=== PATIENT | female | born 1985 | race Hispanic/Latino ===

== ENCOUNTER 2016-10-12 21:42 | Emergency (ER) | payer SELFPAY ==
--- NOTE | 2016-10-12 22:23 | RAD ---
THREE VIEW RIGHT ANKLE 10/12/16 CLINICAL HISTORY: Pain, fall. FINDINGS: No fracture or dislocation. Mortise is intact. There is a punctate density seen within the plantar a spect of the hindfoot on the lateral view, not seen on the additional views. This could relate to ar tifact or possibly a small foreign body of the hindfoot soft tissues. IMPRESSION: No acute osseous abnormality. Punctate density of the hindfoot soft tissues as above. POS: MINE
[2016-10-12 22:33] LABS: Pregnancy Test - Urine (BHCG) Negative (Negative)
[2016-10-12 22:34] LABS: Pregu Control Background? CLEAR/WHITE (CLR/WHITE); Pregu Control Bar Appear? YES (CONTROL BAR); Specific Gravity 1.026 (1.002-1.036)
[2016-10-12] MEDS ORDERED: traMADol HCl 50 MG TAB ONE (22:39)
== END 2016-10-12 22:48 | disposition home or self-care (01) ==
LOC: BURERS 21:42
DX: S93.401A Sprain of unspecified ligament of right ankle, initial encounter (principal); F17.210 Nicotine dependence, cigarettes, uncomplicated; W01.0XXA Fall on same level from slipping, tripping and stumbling without subsequent striking against object, initial encounter; Y93.01 Activity, walking, marching and hiking; Y99.8 Other external cause status
CPT/HCPCS: 81025

== ENCOUNTER 2016-12-08 16:18 | Emergency (ER) | payer SELFPAY ==
[2016-12-08] MEDS ORDERED: Ketorolac Tromethamine 30 MG/ML VIAL ONE (16:51)
== END 2016-12-08 17:25 | disposition home or self-care (01) ==
LOC: BURERS 16:18
DX: S03.2XXA Dislocation of tooth, initial encounter (principal); F17.210 Nicotine dependence, cigarettes, uncomplicated; W11.XXXA Fall on and from ladder, initial encounter
CPT/HCPCS: 96372; J1885

== ENCOUNTER 2017-04-07 05:00 | Emergency (ER) | payer SELFPAY ==
[2017-04-07 05:27] LABS: Bilirubin Negative (Negative); Blood, Urine Negative (Negative); Clarity Clear (Clear); Glucose, Urine (Dipstick) Negative (Negative); Leukocyte Negative (Negative); Nitrite Negative (Negative); Protein, Urine (Dipstick) Negative (Neg-Trace); Specific Gravity, Urine 1.025 (1.005-1.030)
== END 2017-04-07 06:11 | disposition home or self-care (01) ==
LOC: BURERS 05:00
DX: R10.9 Unspecified abdominal pain (principal); F17.210 Nicotine dependence, cigarettes, uncomplicated
CPT/HCPCS: 81003; 99284

== ENCOUNTER 2017-09-27 07:28 | Emergency (ER) | payer SELFPAY ==
[2017-09-27 08:21] LABS: Bilirubin Negative (Negative); Clarity Cloudy (Clear); Glucose, Urine (Dipstick) Negative (Negative); Leukocyte Trace (Negative); Nitrite Positive (Negative); Protein, Urine (Dipstick) 30 mg/dL (Neg-Trace); Specific Gravity, Urine 1.025 (1.005-1.030); Urobilinogen 0.2 mg/dL (0.2-1.0)
[2017-09-27 08:22] LABS: Blood, Urine Trace (Negative)
[2017-09-27] MEDS ORDERED: Cephalexin 500 MG CAP ONE (08:29)
[2017-09-27] MEDS ORDERED: Azithromycin 250 MG TAB ONE (08:29)
[2017-09-27 08:31] LABS: Bacteria/HPF 4+ HPF (None Seen); RBC/HPF 0-3 HPF (0-3); Squamous Epithelial 0-3 HPF (0-3)
[2017-09-27 08:36] LABS: Pregnancy Test - Urine (BHCG) Negative (Negative); Pregu Control Background? CLEAR/WHITE (CLR/WHITE); Pregu Control Bar Appear? YES (CONTROL BAR); Specific Gravity 1.025 (1.002-1.036)
== END 2017-09-27 08:40 | disposition home or self-care (01) ==
LOC: BURERS 07:28
DX: N39.0 Urinary tract infection, site not specified (principal); F17.210 Nicotine dependence, cigarettes, uncomplicated
CPT/HCPCS: 81003; 81015; 81025; 87491; 87591; 99283

== ENCOUNTER 2017-10-10 19:18 | Emergency (ER) | payer SELFPAY ==
[2017-10-10] MEDS ORDERED: Dicyclomine 20 MG TAB ONE (19:34)
[2017-10-10 19:40] LABS: Pregnancy Test - Urine (BHCG) Negative (Negative); Pregu Control Background? CLEAR/WHITE (CLR/WHITE); Pregu Control Bar Appear? YES (CONTROL BAR)
[2017-10-10 19:41] LABS: Bilirubin Negative (Negative); Blood, Urine Moderate (Negative); Clarity Clear (Clear); Glucose, Urine (Dipstick) Negative (Negative); Leukocyte Small (Negative); Nitrite Negative (Negative); Protein, Urine (Dipstick) 30 mg/dL (Neg-Trace); RBC/HPF 0-3 HPF (0-3); Squamous Epithelial 0-3 HPF (0-3); Urobilinogen 0.2 mg/dL (0.2-1.0); pH, Urine 5.5 (5.0-9.0)
[2017-10-10 19:42] LABS: Bacteria/HPF Rare-Few HPF (None Seen); Trichomonas/HPF 1+ HPF (None Seen)
[2017-10-10] MEDS ORDERED: Cephalexin 500 MG CAP ONE (19:52)
[2017-10-10] MEDS ORDERED: metroNIDAZOLE 250 MG TAB ONE (19:52)
== END 2017-10-10 19:53 | disposition home or self-care (01) ==
LOC: BURERS 19:18
DX: N39.0 Urinary tract infection, site not specified (principal); F17.210 Nicotine dependence, cigarettes, uncomplicated
CPT/HCPCS: 81003; 81015; 81025; 99284

== ENCOUNTER 2020-05-11 16:03 | Emergency (ER) | payer SELFPAY | END 2020-05-11 16:42 | disposition home or self-care (01) | LOC: BURERS 16:03 | DX: N89.8 Other specified noninflammatory disorders of vagina (principal); F17.210 Nicotine dependence, cigarettes, uncomplicated | CPT/HCPCS: 99281 ==

== ENCOUNTER 2021-02-20 16:13 | Emergency (ER) | payer SELFPAY ==
[2021-02-20 16:42] LABS: Bilirubin Negative (Negative); Blood, Urine Negative (Negative); Clarity Clear (Clear); Glucose, Urine (Dipstick) Negative (Negative); Ketone, Urine Negative (Negative); Leukocyte Negative (Negative); Nitrite Negative (Negative); Protein, Urine (Dipstick) Negative (Neg-Trace); Urobilinogen 0.2 mg/dL (Less than 2); pH, Urine 8.5 (5.0-9.0)
[2021-02-20 16:43] LABS: Pregnancy Test - Urine (BHCG) Negative (Negative); Pregu Control Background? CLEAR/WHITE (CLR/WHITE); Pregu Control Bar Appear? YES (CONTROL BAR)
[2021-02-20] MEDS ORDERED: Ketorolac Tromethamine 30 MG/ML VIAL ONE (16:53)
[2021-02-20] MEDS ORDERED: Cyclobenzaprine 10 MG TAB ONE (16:53)
[2021-02-20 16:59] LABS: #Basophils 0.1 thou/uL (0.0-0.2); #Lymphocytes 1.3 thou/uL (1.20-3.40); #Monocytes 0.7 thou/uL (0.11-0.59); %Basophils 0.6 % (0.0-1.0); %Eosinophils 0.4 % (0.0-10.0); %Lymphocytes 11.1 % (21.0-51.0); %Monocytes 5.9 % (0.0-10.0); %Neutrophils 82.1 % (42.0-75.0); Hemoglobin 10.8 g/dL (12.0-16.0); Mean Corpuscular HGB CONC 31.3 g/dL (32.0-36.0); Mean Corpuscular Hemoglobin 25.2 pg (27.0-31.0); Mean Corpuscular Volume 80.6 fL (78.0-98.0); Mean Platelet Volume 7.4 fL (7.4-10.4); Platelet Count 272 thou/uL (130-400); RBC Distribution Width 15.1 % (11.5-14.5); Red Blood Cell (RBC) Count 4.29 mill/uL (4.20-5.40); White Blood Cell (WBC) Count 12.1 thou/uL (4.8-10.8)
[2021-02-20 17:15] LABS: ALT (SGPT) 27 U/L (8-55); AST (SGOT) 20 U/L (5-34); Albumin 3.9 g/dL (3.5-5.0); Alkaline Phosphatase 64 U/L (40-110); Anion Gap 16 mmol/L (10-20); BUN (Urea Nitrogen) 12 mg/dL (7.0-18.7); Bilirubin, Total 0.5 mg/dL (0.2-1.2); Calc. Creatinine Clearance 0 mL/min (70-130); Calcium 9.5 mg/dL (7.8-10.44); Carbon Dioxide 23 mmol/L (22-29); Chloride 102 mmol/L (98-107); Globulin 3.4 g/dL (2.4-3.5); Glucose 100 mg/dL (70-105); Potassium 3.6 mmol/L (3.5-5.1); Protein, Total 7.3 g/dL (6.0-8.3); Sodium 137 mmol/L (136-145)
== END 2021-02-20 17:51 | disposition home or self-care (01) ==
LOC: BURERS 16:13
DX: M54.50 Low back pain, unspecified (principal); F17.210 Nicotine dependence, cigarettes, uncomplicated
CPT/HCPCS: 36415; 80053; 81003; 81025; 85025; 87077; 87086; 87186; 96374; J1885

== ENCOUNTER 2021-02-20 23:43 | Emergency (ER) | payer SELFPAY ==
[~2021-02-20 23:43] MED LIST: Iopamidol 370 76% 100 ML VIAL ONE
[2021-02-21 00:28] LABS: #Basophils 0.1 thou/uL (0.0-0.2); #Eosinphils 0.1 thou/uL (0.0-0.7); #Lymphocytes 1.3 thou/uL (1.20-3.40); #Monocytes 0.9 thou/uL (0.11-0.59); #Neutrophils 7.4 thou/uL (1.40-6.50); %Eosinophils 0.7 % (0.0-10.0); %Lymphocytes 13.6 % (21.0-51.0); %Monocytes 9.4 % (0.0-10.0); %Neutrophils 75.4 % (42.0-75.0); Hemoglobin 10.3 g/dL (12.0-16.0); Mean Corpuscular Hemoglobin 26.2 pg (27.0-31.0); Mean Corpuscular Volume 79.4 fL (78.0-98.0); Mean Platelet Volume 6.9 fL (7.4-10.4); Platelet Count 251 thou/uL (130-400); RBC Distribution Width 15.6 % (11.5-14.5); Red Blood Cell (RBC) Count 3.91 mill/uL (4.20-5.40); White Blood Cell (WBC) Count 9.8 thou/uL (4.8-10.8)
[2021-02-21] MEDS ORDERED: Morphine 4 MG/ML VIAL ONE (00:31)
[2021-02-21] MEDS ORDERED: Lorazepam 2 MG/ML VIAL ONE (00:31)
[2021-02-21 00:37] LABS: Pregs Control Background? CLEAR/WHITE (CLR/WHITE); Pregs Control Bar Appear? YES (CONTROL BAR)
[2021-02-21 00:42] LABS: BHCG - Serum Negative (NEGATIVE)
[2021-02-21 00:46] LABS: ALT (SGPT) 27 U/L (8-55); AST (SGOT) 23 U/L (5-34); Albumin 3.5 g/dL (3.5-5.0); Alkaline Phosphatase 62 U/L (40-110); Anion Gap 14 mmol/L (10-20); BUN (Urea Nitrogen) 13 mg/dL (7.0-18.7); Bilirubin, Total 0.4 mg/dL (0.2-1.2); Calc. Creatinine Clearance 0 mL/min (70-130); Calcium 8.8 mg/dL (7.8-10.44); Carbon Dioxide 23 mmol/L (22-29); Chloride 104 mmol/L (98-107); Globulin 3.1 g/dL (2.4-3.5); Glucose 114 mg/dL (70-105); Potassium 3.8 mmol/L (3.5-5.1); Protein, Total 6.6 g/dL (6.0-8.3); Sodium 137 mmol/L (136-145)
[2021-02-21 00:47] LABS: Acetaminophen Less than 6.0 mcg/mL (10.0-30.0); Alcohol Less than 10 mg/dL (Less than 10); CK (CPK) 130 U/L (29-168); Salicylate Less than 8.0 mg/dL (15.0-30.0)
== END 2021-02-21 02:23 | disposition home or self-care (01) ==
LOC: BURERS 23:43
DX: M51.37 Other intervertebral disc degeneration, lumbosacral region (principal); F15.10 Other stimulant abuse, uncomplicated; F17.210 Nicotine dependence, cigarettes, uncomplicated
CPT/HCPCS: 71260; 74177; 80307; 82550; 83605; 83735; 84703; 86140; 96374; 96375; J2060; J2270; Q9967

== ENCOUNTER 2021-02-25 16:49 | Observation (INO) | payer SELFPAY ==
[2021-02-25] MEDS ORDERED: cefTRIAXone\\ROCEPHIN 2 GM VIAL ONE (17:44)
[2021-02-25] MEDS ORDERED: Ondansetron PF 4 MG/2 ML Vial ONE (17:44)
[2021-02-25] MEDS ORDERED: Ketorolac Tromethamine 30 MG/ML VIAL ONE ×2 (17:44→21:18)
[2021-02-25 17:52] LABS: ALT (SGPT) 145 U/L (8-55); AST (SGOT) 39 U/L (5-34); Albumin 3.6 g/dL (3.5-5.0); Alkaline Phosphatase 205 U/L (40-110); Anion Gap 16 mmol/L (10-20); BUN (Urea Nitrogen) 11 mg/dL (7.0-18.7); Bilirubin, Total 0.3 mg/dL (0.2-1.2); Calc. Creatinine Clearance 0 mL/min (70-130); Calcium 9.7 mg/dL (7.8-10.44); Carbon Dioxide 26 mmol/L (22-29); Chloride 99 mmol/L (98-107); Glucose 105 mg/dL (70-105); Protein, Total 7.6 g/dL (6.0-8.3); Sodium 137 mmol/L (136-145)
[2021-02-25 17:55] LABS: #Basophils 0.1 thou/uL (0.0-0.2); #Lymphocytes 1.4 thou/uL (1.20-3.40); #Monocytes 0.6 thou/uL (0.11-0.59); #Neutrophils 10.5 thou/uL (1.40-6.50); %Basophils 0.8 % (0.0-1.0); %Eosinophils 0.3 % (0.0-10.0); %Monocytes 4.6 % (0.0-10.0); %Neutrophils 83.4 % (42.0-75.0); Hemoglobin 11.9 g/dL (12.0-16.0); Mean Corpuscular HGB CONC 33.1 g/dL (32.0-36.0); Mean Corpuscular Hemoglobin 25.9 pg (27.0-31.0); Mean Corpuscular Volume 78.1 fL (78.0-98.0); Mean Platelet Volume 5.6 fL (7.4-10.4); Platelet Count 419 thou/uL (130-400); RBC Distribution Width 14.9 % (11.5-14.5); Red Blood Cell (RBC) Count 4.61 mill/uL (4.20-5.40); White Blood Cell (WBC) Count 12.6 thou/uL (4.8-10.8)
[2021-02-25 18:19] LABS: Bilirubin Negative (Negative); Blood, Urine Trace (Negative); Clarity Clear (Clear); Glucose, Urine (Dipstick) Negative (Negative); Ketone, Urine Negative (Negative); Leukocyte Trace (Negative); Nitrite Negative (Negative); Protein, Urine (Dipstick) Negative (Neg-Trace); Urobilinogen 0.2 mg/dL (Less than 2); pH, Urine 6.5 (5.0-9.0)
[2021-02-25 18:59] LABS: Bacteria/HPF 1+ HPF (None Seen); RBC/HPF 0-3 HPF (0-3); Sperm/HPF Rare HPF (None Seen); Transitional Epithelial 0-3 HPF (None Seen); WBC/HPF 0-3 HPF (0-3)
[2021-02-25] MEDS ORDERED: Morphine 2 MG/ML VIAL ONE (19:03)
[2021-02-25 19:29] VITALS: BMI 29.2
[2021-02-25] MEDS ORDERED: HYDROcodone/Acetaminophen 5/325 mg Tablet PO PRN (20:00)
[2021-02-25] MEDS ORDERED: Acetaminophen 325 MG TAB PO PRN (20:00)
[2021-02-25] MEDS ORDERED: Ondansetron PF 4 MG/2 ML Vial IVP PRN (20:00)
[2021-02-25] MEDS ORDERED: Ondansetron ODT 4 MG TAB SL PRN (20:00)
[2021-02-25 21:05] LABS: SARS-CoV-2 NAA Rapid Test Not Detected (NotDetected)
[2021-02-25] MEDS: Ketorolac Tromethamine 30 MG/ML VIAL IVP PRN (21:24)
[2021-02-25] MEDS: Dextrose 5 %-0.45 % NaCl 1,000 ML IV SCH (21:27)
[2021-02-26] MEDS ORDERED: Ketorolac Tromethamine 30 MG/ML VIAL ONE ×4 (03:18→23:28)
[2021-02-26] MEDS: Ketorolac Tromethamine 30 MG/ML VIAL IVP PRN ×4 (03:22→23:33)
[2021-02-26] MEDS: Dextrose 5 %-0.45 % NaCl 1,000 ML IV SCH ×3 (03:23→19:41)
[2021-02-26] MEDS: HYDROcodone/Acetaminophen 5/325 mg Tablet PO PRN ×3 (08:59→23:37)
[2021-02-26] MEDS ORDERED: cefTRIAXone\\ROCEPHIN 1 GM in Sodium Chloride 0.9% 100 ML IVPB SCH (09:00)
[2021-02-26] MEDS ORDERED: Nicotine 21 MG PATCH TOP SCH (12:00)
[2021-02-26 12:18] LABS: #Basophils 0.1 thou/uL (0.0-0.2); #Eosinphils 0.1 thou/uL (0.0-0.7); #Lymphocytes 1.8 thou/uL (1.20-3.40); #Monocytes 0.5 thou/uL (0.11-0.59); #Neutrophils 6.4 thou/uL (1.40-6.50); %Basophils 0.8 % (0.0-1.0); %Eosinophils 1.3 % (0.0-10.0); %Lymphocytes 20.4 % (21.0-51.0); %Monocytes 5.7 % (0.0-10.0); %Neutrophils 71.7 % (42.0-75.0); Hemoglobin 10.9 g/dL (12.0-16.0); Mean Corpuscular Hemoglobin 25.7 pg (27.0-31.0); Mean Corpuscular Volume 82.9 fL (78.0-98.0); Mean Platelet Volume 5.5 fL (7.4-10.4); Platelet Count 406 thou/uL (130-400); RBC Distribution Width 15.5 % (11.5-14.5); Red Blood Cell (RBC) Count 4.22 mill/uL (4.20-5.40); White Blood Cell (WBC) Count 8.9 thou/uL (4.8-10.8)
[2021-02-26 13:47] LABS: Amphetamine Not Detected (NotDetected); Barbiturates Screen Not Detected (NotDetected); Benzodiazepine Screen Not Detected (NotDetected); Cocaine Metabolite Screen Not Detected (NotDetected); Medtox Control Line Valid? VALID (VALID); Methadone Not Detected (NotDetected); Methamphetamine Not Detected (NotDetected); Opiate Screen Not Detected (NotDetected); Oxycodone Screen Not Detected (NotDetected); Phencyclidine (PCP) Not Detected (NotDetected); THC/Cannabinoid Screen Not Detected (NotDetected); Tricyclic Screen Not Detected (NotDetected)
[2021-02-26] MEDS ORDERED: tiZANidine HCl 4 MG TAB PO PRN (18:33)
[2021-02-26] MEDS: Vancomycin HCl 1 GM in Sodium Chloride 0.9% 250 ML 250 ML IVPB SCH (18:41)
[2021-02-26] MEDS ORDERED: Bisacodyl 5 MG TAB PO PRN (18:46)
[2021-02-26] MEDS ORDERED: Sodium Chloride 0.9% 1,000 ML IV SCH (19:00)
[2021-02-26] MEDS: cefTRIAXone\\ROCEPHIN 1 GM in Sodium Chloride 0.9% 100 ML IVPB SCH (20:44)
[2021-02-27] MEDS: Vancomycin HCl 1 GM in Sodium Chloride 0.9% 250 ML 250 ML IVPB SCH (00:51)
[2021-02-27] MEDS ORDERED: Ketorolac Tromethamine 30 MG/ML VIAL ONE ×2 (05:31→07:32)
[2021-02-27] MEDS: HYDROcodone/Acetaminophen 5/325 mg Tablet PO PRN (05:33)
[2021-02-27] MEDS: Ketorolac Tromethamine 30 MG/ML VIAL IVP PRN (05:33)
[2021-02-27] MEDS ORDERED: ALPRAZolam 0.5 MG TAB PO SCH ×2 (06:00→07:30)
[2021-02-27 07:29] VITALS: BP 125/83; TEMP 98.8
[2021-02-27] MEDS ORDERED: Ketorolac Tromethamine 30 MG/ML VIAL IVP SCH (07:30)
[2021-02-27] MEDS ORDERED: HYDROcodone/Acetaminophen 5/325 mg Tablet PO SCH (07:30)
[2021-02-27] MEDS: cefTRIAXone\\ROCEPHIN 1 GM in Sodium Chloride 0.9% 100 ML IVPB SCH (07:44)
== END 2021-02-27 08:30 | disposition short-term general hospital (02) ==
LOC: BURERS 16:49 → BURMED 18:40
PROVIDERS: ADMIT Family Medicine; ATTEND Family Medicine
DX: N10 Acute pyelonephritis (principal); M43.17 Spondylolisthesis, lumbosacral region; N63.10 Unspecified lump in the right breast, unspecified quadrant; F17.210 Nicotine dependence, cigarettes, uncomplicated
CPT/HCPCS: 36415; 80053; 80306; 81003; 81015; 83605; 85025; 87040; 87086; 96365; 96375; J0696; J1885; J2270; J2405; J3370; J3490; J7042; J7050; U0002

== ENCOUNTER 2021-03-13 08:08 | Emergency (ER) | payer SELFPAY ==
[2021-03-13 08:44] LABS: Bilirubin Negative (Negative); Blood, Urine Trace (Negative); Clarity Clear (Clear); Glucose, Urine (Dipstick) Negative (Negative); Ketone, Urine Negative (Negative); Leukocyte Small (Negative); Nitrite Negative (Negative); Protein, Urine (Dipstick) Negative (Neg-Trace); Specific Gravity, Urine 1.025 (1.005-1.030); Urobilinogen 0.2 mg/dL (Less than 2); pH, Urine 6.5 (5.0-9.0)
[2021-03-13] MEDS ORDERED: Morphine 4 MG/ML VIAL ONE (08:53)
[2021-03-13] MEDS ORDERED: Morphine 2 MG/ML VIAL ONE (08:53)
[2021-03-13] MEDS ORDERED: diphenhydrAMINE 50 MG/ML VIAL ONE (08:54)
[2021-03-13 08:57] LABS: Bacteria/HPF Rare-Few HPF (None Seen); RBC/HPF 0-3 HPF (0-3); WBC/HPF None Seen HPF (0-3)
[2021-03-13 09:08] LABS: #Basophils 0.1 thou/uL (0.0-0.2); #Eosinphils 0.1 thou/uL (0.0-0.7); #Lymphocytes 1.8 thou/uL (1.20-3.40); #Monocytes 0.4 thou/uL (0.11-0.59); #Neutrophils 4.8 thou/uL (1.40-6.50); %Eosinophils 1.4 % (0.0-10.0); %Lymphocytes 25.3 % (21.0-51.0); %Monocytes 5.1 % (0.0-10.0); %Neutrophils 67.1 % (42.0-75.0); Hemoglobin 11.2 g/dL (12.0-16.0); Mean Corpuscular Hemoglobin 24.5 pg (27.0-31.0); Mean Corpuscular Volume 76.7 fL (78.0-98.0); Mean Platelet Volume 5.1 fL (7.4-10.4); Platelet Count 585 thou/uL (130-400); RBC Distribution Width 14.8 % (11.5-14.5); Red Blood Cell (RBC) Count 4.55 mill/uL (4.20-5.40); White Blood Cell (WBC) Count 7.1 thou/uL (4.8-10.8)
[2021-03-13 10:37] LABS: Anisocytosis SLIGHT = 6-15 cells (100X) (0-5/hpf); Elliptocytes SLIGHT = 2-5 cells (100X) (0-1/hpf); Hypochromia SLIGHT = 6-15 cells (100X) (0-5/hpf); MDiff Complete? YES; Platelet Morphology Comment Appears Increased
== END 2021-03-13 09:35 | disposition home or self-care (01) ==
LOC: BURERS 08:08
DX: M54.50 Low back pain, unspecified (principal); F17.210 Nicotine dependence, cigarettes, uncomplicated
CPT/HCPCS: 81003; 81015; 85025; 86140; 96374; 96375; J1200; J2270

== ENCOUNTER 2021-03-20 17:18 | Emergency (ER) | payer SELFPAY ==
[2021-03-20 18:34] LABS: #Basophils 0.1 thou/uL (0.0-0.2); #Eosinphils 0.1 thou/uL (0.0-0.7); #Lymphocytes 1.8 thou/uL (1.20-3.40); #Monocytes 0.5 thou/uL (0.11-0.59); #Neutrophils 7.5 thou/uL (1.40-6.50); %Eosinophils 1.3 % (0.0-10.0); %Lymphocytes 18.2 % (21.0-51.0); %Monocytes 5.4 % (0.0-10.0); %Neutrophils 74.1 % (42.0-75.0); Hemoglobin 12.2 g/dL (12.0-16.0); Mean Corpuscular HGB CONC 32.7 g/dL (32.0-36.0); Mean Corpuscular Hemoglobin 24.8 pg (27.0-31.0); Mean Platelet Volume 6.1 fL (7.4-10.4); Platelet Count 413 thou/uL (130-400); RBC Distribution Width 14.6 % (11.5-14.5); Red Blood Cell (RBC) Count 4.93 mill/uL (4.20-5.40); White Blood Cell (WBC) Count 10.1 thou/uL (4.8-10.8)
[2021-03-20 18:45] LABS: ALT (SGPT) 16 U/L (8-55); AST (SGOT) 18 U/L (5-34); Albumin 3.9 g/dL (3.5-5.0); Alkaline Phosphatase 115 U/L (40-110); Anion Gap 15 mmol/L (10-20); BUN (Urea Nitrogen) 17 mg/dL (7.0-18.7); Bilirubin, Total 0.3 mg/dL (0.2-1.2); Calc. Creatinine Clearance 0 mL/min (70-130); Calcium 9.8 mg/dL (7.8-10.44); Carbon Dioxide 24 mmol/L (22-29); Chloride 105 mmol/L (98-107); Glucose 105 mg/dL (70-105); Potassium 3.5 mmol/L (3.5-5.1); Protein, Total 7.9 g/dL (6.0-8.3); Sodium 140 mmol/L (136-145)
[2021-03-20 18:57] LABS: RBC Morphology Normal
[2021-03-20 18:58] LABS: Platelet Morphology Comment Appears Adequate
[2021-03-20] MEDS ORDERED: Ketorolac Tromethamine 30 MG/ML VIAL ONE (19:21)
[2021-03-20] MEDS ORDERED: Fentanyl 100 MCG/2 ML VIAL ONE (20:11)
[2021-03-20] MEDS ORDERED: Ondansetron PF 4 MG/2 ML Vial ONE (20:11)
[2021-03-20 22:41] LABS: SARS-CoV-2 NAA Rapid Test Not Detected (NotDetected)
[2021-03-20] MEDS ORDERED: Morphine 4 MG/ML VIAL ONE (23:21)
== END 2021-03-20 23:30 | disposition short-term general hospital (02) ==
LOC: BURERS 17:18
DX: M46.26 Osteomyelitis of vertebra, lumbar region (principal); M46.47 Discitis, unspecified, lumbosacral region; F15.10 Other stimulant abuse, uncomplicated; F17.210 Nicotine dependence, cigarettes, uncomplicated; Z20.822 Contact with and (suspected) exposure to COVID-19; Z79.899 Other long term (current) drug therapy
CPT/HCPCS: 0241U; 36415; 72132; 80053; 83605; 85025; 86140; 87040; 96365; 96366; 96375; J1885; J2270; J2405; J3010; J3370

== ENCOUNTER 2021-04-17 21:44 | Emergency (ER) | payer SELFPAY | END 2021-04-17 22:08 | disposition home or self-care (01) | LOC: BURERS 21:44 | DX: M79.10 Myalgia, unspecified site (principal); M79.604 Pain in right leg; M79.605 Pain in left leg; F17.210 Nicotine dependence, cigarettes, uncomplicated | CPT/HCPCS: 99283 ==

== ENCOUNTER 2021-04-18 07:30 | Emergency (ER) | payer SELFPAY | END 2021-04-18 08:08 | disposition home or self-care (01) | LOC: BURERS 07:30 | DX: G89.4 Chronic pain syndrome (principal); M54.9 Dorsalgia, unspecified; Z48.00 Encounter for change or removal of nonsurgical wound dressing; M86.9 Osteomyelitis, unspecified; F17.200 Nicotine dependence, unspecified, uncomplicated | CPT/HCPCS: 99283 ==

== ENCOUNTER 2021-04-18 14:25 | Emergency (ER) | payer SELFPAY ==
[2021-04-18 14:55] LABS: #Basophils 0.1 thou/uL (0.0-0.2); #Eosinphils 0.2 thou/uL (0.0-0.7); #Monocytes 0.4 thou/uL (0.11-0.59); #Neutrophils 3.5 thou/uL (1.40-6.50); %Eosinophils 2.7 % (0.0-10.0); %Lymphocytes 32.3 % (21.0-51.0); %Monocytes 6.8 % (0.0-10.0); %Neutrophils 57.2 % (42.0-75.0); Hemoglobin 10.4 g/dL (12.0-16.0); Mean Corpuscular HGB CONC 32.9 g/dL (32.0-36.0); Mean Corpuscular Hemoglobin 25.3 pg (27.0-31.0); Mean Corpuscular Volume 76.9 fL (78.0-98.0); Mean Platelet Volume 7.5 fL (7.4-10.4); Platelet Count 260 thou/uL (130-400); RBC Distribution Width 15.6 % (11.5-14.5); Red Blood Cell (RBC) Count 4.11 mill/uL (4.20-5.40); White Blood Cell (WBC) Count 6.1 thou/uL (4.8-10.8)
[2021-04-18 15:09] LABS: Amphetamine Detected (NotDetected); Barbiturates Screen Not Detected (NotDetected); Benzodiazepine Screen Not Detected (NotDetected); Cocaine Metabolite Screen Not Detected (NotDetected); Medtox Control Line Valid? VALID (VALID); Methadone Not Detected (NotDetected); Methamphetamine Detected (NotDetected); Opiate Screen Detected (NotDetected); Oxycodone Screen Not Detected (NotDetected); Phencyclidine (PCP) Not Detected (NotDetected); THC/Cannabinoid Screen Not Detected (NotDetected); Tricyclic Screen Not Detected (NotDetected)
[2021-04-18 15:11] LABS: BHCG - Serum Negative (NEGATIVE); Pregs Control Background? CLEAR/WHITE (CLR/WHITE); Pregs Control Bar Appear? YES (CONTROL BAR)
[2021-04-18 15:13] LABS: ALT (SGPT) 62 U/L (8-55); AST (SGOT) 96 U/L (5-34); Albumin 3.6 g/dL (3.5-5.0); Alkaline Phosphatase 63 U/L (40-110); Anion Gap 13 mmol/L (10-20); BUN (Urea Nitrogen) 9 mg/dL (7.0-18.7); Bilirubin, Total Less than 0.2 mg/dL (0.2-1.2); Calc. Creatinine Clearance 0 mL/min (70-130); Carbon Dioxide 23 mmol/L (22-29); Chloride 108 mmol/L (98-107); Globulin 2.7 g/dL (2.4-3.5); Glucose 86 mg/dL (70-105); Lipase 65 U/L (8-78); Potassium 3.7 mmol/L (3.5-5.1); Protein, Total 6.3 g/dL (6.0-8.3); Sodium 140 mmol/L (136-145)
[2021-04-18] MEDS ORDERED: Ketorolac Tromethamine 30 MG/ML VIAL ONE (15:55)
[2021-04-18] MEDS ORDERED: Cyclobenzaprine 10 MG TAB ONE (15:55)
== END 2021-04-18 16:02 | disposition home or self-care (01) ==
LOC: BURERS 14:25
DX: M54.50 Low back pain, unspecified (principal); G89.29 Other chronic pain; M86.8X9 Other osteomyelitis, unspecified sites; F17.210 Nicotine dependence, cigarettes, uncomplicated
CPT/HCPCS: 80053; 80306; 83605; 83690; 84703; 85025; 85652; 96374; J1885

== ENCOUNTER 2021-05-11 18:38 | Emergency (ER) | payer SELFPAY ==
[2021-05-11 21:04] LABS: Bilirubin Negative (Negative); Blood, Urine Trace (Negative); Clarity Clear (Clear); Glucose, Urine (Dipstick) Negative (Negative); Ketone, Urine Negative (Negative); Leukocyte Trace (Negative); Nitrite Negative (Negative); Protein, Urine (Dipstick) Negative (Neg-Trace); Specific Gravity, Urine 1.028 (1.002-1.036); Urobilinogen 0.2 mg/dL (Less than 2); pH, Urine 6.5 (5.0-9.0)
[2021-05-11 21:04] LABS: Pregnancy Test - Urine (BHCG) Negative (Negative); Pregu Control Background? CLEAR/WHITE (CLR/WHITE); Pregu Control Bar Appear? YES (CONTROL BAR); Specific Gravity 1.028 (1.002-1.036)
[2021-05-11 21:07] LABS: Bacteria/HPF 1+ HPF (None Seen); RBC/HPF 0-3 HPF (0-3); WBC/HPF 0-3 HPF (0-3)
[2021-05-12 21:31] LABS: Chlam.trachomatis by PCR,Urine Not Detected (NotDetected)
== END 2021-05-11 21:42 | disposition home or self-care (01) ==
LOC: BURERS 18:38
DX: A63.0 Anogenital (venereal) warts (principal); M86.9 Osteomyelitis, unspecified
CPT/HCPCS: 81003; 81015; 81025; 87491; 87591; 99283

== ENCOUNTER 2021-06-17 18:51 | Emergency (ER) | payer SELFPAY ==
[2021-06-17 20:12] LABS: Bilirubin Negative (Negative); Blood, Urine Trace (Negative); Clarity Slightly Cloudy (Clear); Glucose, Urine (Dipstick) Negative (Negative); Ketone, Urine Negative (Negative); Leukocyte Large (Negative); Nitrite Positive (Negative); Protein, Urine (Dipstick) Negative (Neg-Trace); Specific Gravity, Urine 1.025 (1.005-1.030); Urobilinogen 0.2 mg/dL (Less than 2); pH, Urine 6.5 (5.0-9.0)
[2021-06-17 20:15] LABS: Pregnancy Test - Urine (BHCG) Negative (Negative); Pregu Control Background? CLEAR/WHITE (CLR/WHITE); Pregu Control Bar Appear? YES (CONTROL BAR); Specific Gravity 1.025 (1.002-1.036)
[2021-06-17 20:47] LABS: RBC/HPF 0-3 HPF (0-3); Squamous Epithelial 0-3 HPF (0-3)
[2021-06-17 20:48] LABS: Bacteria/HPF 3+ HPF (None Seen)
[2021-06-19 15:26] LABS: Chlam.trachomatis by PCR,Urine Not Detected (NotDetected)
== END 2021-06-17 21:12 | disposition home or self-care (01) ==
LOC: BURERS 18:51
DX: N39.0 Urinary tract infection, site not specified (principal); F17.210 Nicotine dependence, cigarettes, uncomplicated; M86.9 Osteomyelitis, unspecified
CPT/HCPCS: 81003; 81015; 81025; 87077; 87086; 87186; 87491; 87591; 99283

== ENCOUNTER 2021-10-19 05:36 | Emergency (ER) | payer SELFPAY ==
[2021-10-19 06:43] LABS: Bilirubin Small (Negative); Blood, Urine Trace (Negative); Clarity Cloudy (Clear); Glucose, Urine (Dipstick) Negative (Negative); Ketone, Urine Negative (Negative); Leukocyte Trace (Negative); Nitrite Negative (Negative); Protein, Urine (Dipstick) Trace mg/dL (Neg-Trace)
[2021-10-19 06:46] LABS: Pregnancy Test - Urine (BHCG) Negative (Negative); Pregu Control Background? CLEAR/WHITE (CLR/WHITE); Pregu Control Bar Appear? YES (CONTROL BAR); Specific Gravity 1.029 (1.002-1.036); Specific Gravity, Urine 1.029 (1.002-1.036)
[2021-10-19 06:50] LABS: Bacteria/HPF 1+ HPF (None Seen); Mucous/LPF 2+ LPF (<2+); RBC/HPF 0-3 HPF (0-3); Squamous Epithelial 0-3 HPF (0-3); Transitional Epithelial 0-3 HPF (None Seen)
== END 2021-10-19 06:30 | disposition home or self-care (01) ==
LOC: BURERS 05:36
DX: R30.0 Dysuria (principal); F17.210 Nicotine dependence, cigarettes, uncomplicated
CPT/HCPCS: 81003; 81015; 81025; 87086; 99283

== ENCOUNTER 2023-11-08 11:44 | Emergency (ER) | payer BC ==
[2023-11-08 12:25] LABS: #Basophils 0.1 thou/uL (0.0-0.2); #Eosinphils 0.2 thou/uL (0.0-0.7); #Lymphocytes 1.6 thou/uL (1.20-3.40); #Monocytes 0.5 thou/uL (0.11-0.59); %Basophils 0.9 % (0.0-1.0); %Eosinophils 2.6 % (0.0-10.0); %Lymphocytes 21.7 % (21.0-51.0); %Neutrophils 67.8 % (42.0-75.0); Hematocrit 38.8 % (36.0-47.0); Hemoglobin 12.8 g/dL (12.0-16.0); Mean Corpuscular Hemoglobin 27.1 pg (27.0-31.0); Mean Corpuscular Volume 82.3 fl (78.0-98.0); Mean Platelet Volume 6.6 fL (7.4-10.4); Platelet Count 222 10x3/uL (130-400); RBC Distribution Width 13.5 % (11.5-14.5); Red Blood Cell (RBC) Count 4.71 mill/uL (4.20-5.40); White Blood Cell (WBC) Count 7.4 10x3/uL (4.8-10.8)
[2023-11-08] MEDS ORDERED: Morphine 4 MG/ML VIAL ONE (12:25)
[2023-11-08] MEDS ORDERED: Ondansetron PF 4 MG/2 ML Vial ONE (12:25)
[2023-11-08 12:33] LABS: Bilirubin Negative (Negative); Blood, Urine Trace (Negative); Clarity Cloudy (Clear); Glucose, Urine (Dipstick) Negative (Negative); Ketone, Urine Negative (Negative); Leukocyte Small (Negative); Nitrite Negative (Negative); Protein, Urine (Dipstick) Negative (Neg-Trace); Urobilinogen 0.2 mg/dL (Less than 2); pH, Urine 5.5 (5.0-9.0)
[2023-11-08 12:34] LABS: Specific Gravity, Urine 1.021 (1.002-1.036)
[2023-11-08 12:37] LABS: BHCG - Serum Negative (NEGATIVE); Pregs Control Background? CLEAR/WHITE (CLR/WHITE); Pregs Control Bar Appear? YES (CONTROL BAR)
[2023-11-08 12:40] LABS: Bacteria/HPF 3+ HPF (None Seen); CAUTI Indications for Culture Dysuria,urgency,freq; RBC/HPF None Seen HPF (0-3); Urine Culture Reflex No No; WBC/HPF 0-3 HPF (0-3)
[2023-11-08 12:44] LABS: ALT (SGPT) 73 U/L (8-55); AST (SGOT) 54 U/L (5-34); Albumin 3.8 g/dL (3.5-5.0); Alkaline Phosphatase 62 U/L (40-110); Anion Gap 12 mmol/L (10-20); BUN (Urea Nitrogen) 11 mg/dL (7.0-18.7); Bilirubin, Total 0.3 mg/dL (0.2-1.2); Calc. Creatinine Clearance 0 mL/min (70-130); Calcium 9.1 mg/dL (7.8-10.44); Carbon Dioxide 22 mmol/L (22-29); Chloride 108 mmol/L (98-107); Estimated GFR 114; Globulin 2.9 g/dL (2.4-3.5); Glucose 91 mg/dL (70-105); Protein, Total 6.7 g/dL (6.0-8.3); Sodium 138 mmol/L (136-145)
[2023-11-08] MEDS ORDERED: Sterile Water 10 ML ONE (13:40)
[2023-11-08] MEDS ORDERED: cefTRIAXone (ROCEPHIN) 1 GM VIAL ONE (13:41)
[2023-11-08] MEDS ORDERED: diphenhydrAMINE 50 MG/ML VIAL ONE (13:53)
[2023-11-08] MEDS ORDERED: Lidocaine Viscous Sol 2% 15 ml UD Cup ONE (13:53)
[2023-11-08] MEDS ORDERED: methylPREDNISolone Sod Succ/PF 125 MG/2 ML VIAL ONE ×2 (13:53→13:55)
[2023-11-08] MEDS ORDERED: Mag-Al Plus 1200/1200/120 MG (30 mL) UDCUP ONE (13:53)
[2023-11-08] MEDS ORDERED: Famotidine/PF 20 mg/2ml Vial ONE (13:54)
[2023-11-09 02:50] LABS: Chlam.trachomatis by PCR,Urine Not Detected (NotDetected); GC N.gonorrhoeae PCR,UrineVOID Not Detected (NotDetected)
== END 2023-11-08 17:36 | disposition home or self-care (01) ==
LOC: BURERS 11:44
DX: T78.40XA Allergy, unspecified, initial encounter (principal); M54.6 Pain in thoracic spine; N76.0 Acute vaginitis; F17.210 Nicotine dependence, cigarettes, uncomplicated
CPT/HCPCS: 80053; 81001; 84703; 85025; 87480; 87491; 87510; 87591; 87660; 96374; 96375; J0696; J1200; J2270; J2405; J2930; S0028

== ENCOUNTER 2025-05-05 10:56 | Emergency (ER) | payer BC, OTHER ==
[2025-05-05] MEDS ORDERED: Ketorolac Tromethamine 30 MG (1 mL) VIAL ONE (11:33)
[2025-05-05] MEDS ORDERED: Dexamethasone 10 MG/ML VIAL ONE (11:33)
== END 2025-05-05 11:46 | disposition home or self-care (01) ==
LOC: BURERS 10:56
DX: J11.1 Influenza due to unidentified influenza virus with other respiratory manifestations (principal); F17.210 Nicotine dependence, cigarettes, uncomplicated
CPT/HCPCS: 96372; 99283; J1100; J1885